=== PATIENT | female | born 1930 | race Caucasian/White ===

== ENCOUNTER 2017-07-30 13:06 | Emergency (ER) | payer MEDICARE ==
[~2017-07-30] VITALS: Ht 152.4 cm; Wt 63.6 kg
[~2017-07-30 13:06] MED LIST: ACET-812 PO; BISA5TAB10 PO; BISM-51 PO; CALC500T11 PO; CHOL10002 PO; DOCU-20 PO; FLUT16SP2 BOTHNARES; FURO-150 PO; GABA-532 PO; LEVO500T2 PO; MAG355OR18 PO; MAGN400O6 PO; POLY119P2 PO; POTA10TA15 PO; TRAM50TA2 PO
[2017-07-30 15:17] LABS: BASOPHILS % (AUTO) 0.3 % (0-1); EOSINOPHILS # (AUTO) 0.2 X10'3 (0-0.9); EOSINOPHILS % (AUTO) 1.9 % (0-6); HEMATOCRIT 31.1 % (35.0-45.0); HEMOGLOBIN 10.3 g/dl (12.0-16.0); LYMPHOCYTES # (AUTO) 1.5 X10'3 (1.1-4.8); LYMPHOCYTES % (AUTO) 18.1 % (21-51); MEAN CORPUSCULAR HGB CONC 33.2 % (33.0-36.5); MEAN CORPUSCULAR VOLUME 93.5 FL (78-98); MEAN PLATELET VOLUME 9.1 FL (7.4-10.4); MONOCYTES # (AUTO) 0.7 X10'3 (0-0.9); MONOCYTES % (AUTO) 8.2 % (2-12); NEUTROPHILS # (AUTO) 5.7 X10'3 (1.8-7.7); NEUTROPHILS % (AUTO) 71.5 % (42-75); PLATELET COUNT 390 X10'3 (140-440); RED BLOOD COUNT 3.33 X10'6 (4.20-5.60); RED CELL DISTRIBUTION WIDTH 14.9 % (11.5-14.5)
[2017-07-30 15:33] LABS: ALANINE AMINOTRANSFERASE 17 U/L (12-78); ALBUMIN 2.6 G/DL (3.4-5.0); ALBUMIN/GLOBULIN RATIO 0.5 (1.1-1.5); ALKALINE PHOSPHATASE 69 IU/L (46-116); ANION GAP 10 (8-16); ASPARTATE AMINO TRANSFERASE 39 U/L (10-37); BILIRUBIN,TOTAL 0.6 MG/DL (0.1-1.0); BLOOD UREA NITROGEN 35 MG/DL (7-18); BUN/CREATININE RATIO 26.1 (6.6-38.0); CALCIUM 8.5 MG/DL (8.5-10.1); CHLORIDE 106 MMOL/L (99-107); CREATININE 1.34 MG/DL (0.40-0.90); GLUCOSE 86 MG/DL (70-104); POTASSIUM 3.2 MMOL/L (3.5-5.1); SODIUM 147 MMOL/L (135-145); TOTAL PROTEIN 7.4 G/DL (6.4-8.2); eGFR 38 ML/MIN
[2017-07-30 15:33] LABS: CLARITY,URINE CLOUDY (Clear); COLOR,URINE YELLOW (Yellow); GLUCOSE, URINE NEGATIVE (Neg); KETONES,URINE NEGATIVE (Neg); LEUKOCYTE ESTERASE ,URINE LARGE (Neg); NITRITES, URINE NEGATIVE (Neg); OCCULT BLOOD,URINE SMALL (Neg); PROTEIN,URINE 30 mg/dl (Neg); UROBILINOGEN,URINE 0.2 E.U/dL (0.2-1.0)
[2017-07-30 15:41] LABS: UA COLLECTION TYPE STRAIGHT CATH
[2017-07-30 15:42] LABS: RBC,URINE 0-2 /HPF (0-2); WBC,URINE TNTC /HPF (0-4)
[2017-07-30 15:43] LABS: BACTERIA,URINE 2+ /HPF (Neg); MUCUS STRANDS NONE SEEN /LPF (Neg); SQUAMOUS EPITHELIAL CELL,UR FEW /LPF (FEW)
[2017-07-30] MEDS ORDERED: potassium Cl 20 mEq SR tablet PO STA (16:01)
[2017-07-30] MEDS ORDERED: CefTRIAXone 2gm/D5W 50ml ADVTG 50 ML IV ONE (16:05)
[2017-07-30] MEDS ORDERED: normal saline 1000ml 1,000 ML IV ONE (16:05)
[2017-07-30] MEDS ORDERED: NITR100C6 PO (16:16)
[2017-07-30 17:42] VITALS: BP 155/67
== END 2017-07-30 22:12 | disposition home or self-care (01) ==
LOC: ER 13:07
DX: E86.0 Dehydration (principal); E87.6 Hypokalemia; N39.0 Urinary tract infection, site not specified; G89.29 Other chronic pain; Z79.899 Other long term (current) drug therapy
CPT/HCPCS: 36415; 80053; 81001; 85025; 87077; 87088; 87186; 96365; 99285; J0696; J7030

== ENCOUNTER 2017-08-27 13:40 | Inpatient (IN) | payer MEDICARE ==
[~2017-08-27] VITALS: Ht 142.2 cm; Wt 40.9 kg
[~2017-08-27 13:40] MED LIST changes: -LEVO500T2 PO; +NITR100C6 PO
[2017-08-27 15:36] LABS: BASOPHILS % (AUTO) 0 % (0-1); EOSINOPHILS # (AUTO) 0.4 X10'3 (0-0.9); HEMATOCRIT 36.9 % (35.0-45.0); HEMOGLOBIN 12.3 g/dl (12.0-16.0); LYMPHOCYTES # (AUTO) 1.2 X10'3 (1.1-4.8); LYMPHOCYTES % (AUTO) 5.6 % (21-51); MEAN CORPUSCULAR HEMOGLOBIN 30.9 PG (27.0-31.0); MEAN CORPUSCULAR HGB CONC 33.3 % (33.0-36.5); MEAN CORPUSCULAR VOLUME 92.8 FL (78-98); MEAN PLATELET VOLUME 10.4 FL (7.4-10.4); MONOCYTES # (AUTO) 1.1 X10'3 (0-0.9); MONOCYTES % (AUTO) 5.2 % (2-12); NEUTROPHILS # (AUTO) 18.9 X10'3 (1.8-7.7); NEUTROPHILS % (AUTO) 87.2 % (42-75); PLATELET COUNT 320 X10'3 (140-440); RED BLOOD COUNT 3.97 X10'6 (4.20-5.60); RED CELL DISTRIBUTION WIDTH 16.4 % (11.5-14.5); WHITE BLOOD COUNT 21.6 X10'3 (4.5-11.0)
[2017-08-27 15:53] LABS: ALANINE AMINOTRANSFERASE 22 U/L (12-78); ALBUMIN/GLOBULIN RATIO 0.7 (1.1-1.5); ALKALINE PHOSPHATASE 117 IU/L (46-116); ANION GAP 16 (8-16); ASPARTATE AMINO TRANSFERASE 32 U/L (10-37); BILIRUBIN,TOTAL 0.8 MG/DL (0.1-1.0); BLOOD UREA NITROGEN 133 MG/DL (7-18); BUN/CREATININE RATIO 47.5 (6.6-38.0); CALCIUM 8.5 MG/DL (8.5-10.1); CHLORIDE 110 MMOL/L (99-107); GLUCOSE 95 MG/DL (70-104); LARGE PLATELETS FEW; PLATELET ESTIMATE NORMAL; POTASSIUM 4.1 MMOL/L (3.5-5.1); SODIUM 148 MMOL/L (135-145); TOTAL CARBON DIOXIDE 21.6 MMOL/L (24-32); TOTAL PROTEIN 7.2 G/DL (6.4-8.2); eGFR 16 ML/MIN
[2017-08-27 15:56] LABS: CLARITY,URINE SLIGHTLY CLOUDY (Clear); COLOR,URINE YELLOW (Yellow); GLUCOSE, URINE NEGATIVE (Neg); KETONES,URINE NEGATIVE (Neg); LEUKOCYTE ESTERASE ,URINE TRACE (Neg); NITRITES, URINE NEGATIVE (Neg); OCCULT BLOOD,URINE TRACE-LYSED (Neg); PROTEIN,URINE NEGATIVE (Neg); UROBILINOGEN,URINE 0.2 E.U/dL (0.2-1.0)
[2017-08-27 16:03] LABS: UA COLLECTION TYPE STRAIGHT CATH
[2017-08-27 16:04] LABS: AMORPHOUS URATES 1+; BACTERIA,URINE NONE SEEN /HPF (Neg); MUCUS STRANDS NONE SEEN /LPF (Neg); RBC,URINE 0-2 /HPF (0-2); SQUAMOUS EPITHELIAL CELL,UR MODERATE /LPF (FEW); WBC,URINE 0-4 /HPF (0-4)
[2017-08-27 16:05] LABS: YEAST FEW /HPF (NEGATIVE)
[2017-08-27] MEDS ORDERED: normal saline 1000ML IV soln IVB ONE (16:30)
[2017-08-27] MEDS ORDERED: magnesium 2GM in 50ml NS 50 ML IV PRN (19:15)
[2017-08-27] MEDS ORDERED: potassium Cl 40MEQ/NS 500ml 500 ML IV PRN (19:15)
[2017-08-27] MEDS ORDERED: acetaminophen 325mg tablet PO PRN ×2 (19:15→19:20)
[2017-08-27] MEDS ORDERED: ondansetron/PF 4mg/2ml inj IV PRN (19:15)
[2017-08-27] MEDS ORDERED: HYDROcodone/acetaminophen 5mg/325mg tablet PO PRN (19:15)
[2017-08-27] MEDS ORDERED: magnesium hydroxide 30ml (MOM) UD suspension PO PRN (19:15)
[2017-08-27] MEDS ORDERED: magnesium 4gm in 100ml NS 100 ML IV PRN (19:15)
[2017-08-27] MEDS ORDERED: potassium Cl 20 mEq SR tablet PO PRN ×2 (19:15)
[2017-08-27] MEDS ORDERED: magnesium Cl slow-release 64mg tablet PO PRN (19:15)
[2017-08-27] MEDS ORDERED: morphine 5 MG/ML injection IV PRN (19:15)
[2017-08-27] MEDS ORDERED: mag hydrox/Alum hydrox/simeth 30ml oral suspension PO PRN (19:15)
[2017-08-27] MEDS: normal saline 1000ml 1,000 ML IV SCH ×3 (19:59→22:40)
[2017-08-27] MEDS: traMADol 50MG tablet PO SCH (20:00)
[2017-08-27] MEDS: heparin, porcine 5000 units/ml vial SQ SCH (22:38)
[2017-08-27 23:00] VITALS: BP 139/62
[2017-08-28 06:15] LABS: BASOPHILS % (AUTO) 0.1 % (0-1); EOSINOPHILS # (AUTO) 0.2 X10'3 (0-0.9); EOSINOPHILS % (AUTO) 1.2 % (0-6); HEMATOCRIT 31.4 % (35.0-45.0); HEMOGLOBIN 10.4 g/dl (12.0-16.0); LYMPHOCYTES # (AUTO) 0.9 X10'3 (1.1-4.8); MEAN CORPUSCULAR HEMOGLOBIN 30.9 PG (27.0-31.0); MEAN CORPUSCULAR HGB CONC 33.2 % (33.0-36.5); MEAN CORPUSCULAR VOLUME 93.2 FL (78-98); MEAN PLATELET VOLUME 10.4 FL (7.4-10.4); MONOCYTES # (AUTO) 0.7 X10'3 (0-0.9); MONOCYTES % (AUTO) 5.1 % (2-12); NEUTROPHILS # (AUTO) 11.4 X10'3 (1.8-7.7); NEUTROPHILS % (AUTO) 86.6 % (42-75); PLATELET COUNT 233 X10'3 (140-440); RED BLOOD COUNT 3.37 X10'6 (4.20-5.60); RED CELL DISTRIBUTION WIDTH 16.6 % (11.5-14.5); WHITE BLOOD COUNT 13.1 X10'3 (4.5-11.0)
[2017-08-28 06:25] LABS: ALBUMIN 2.5 G/DL (3.4-5.0); ANION GAP 17 (8-16); BLOOD UREA NITROGEN 102 MG/DL (7-18); CALCIUM 8.1 MG/DL (8.5-10.1); CHLORIDE 117 MMOL/L (99-107); GLUCOSE 92 MG/DL (70-104); MAGNESIUM 2.1 MG/DL (1.5-2.4); SODIUM 153 MMOL/L (135-145); eGFR 24 ML/MIN
[2017-08-28 06:32] LABS: POTASSIUM 2.9 MMOL/L (3.5-5.1)
[2017-08-28 06:54] LABS: ANISOCYTOSIS 1+; BURR CELLS 1+; HYPOCHROMASIA 1+; LARGE PLATELETS FEW; PLATELET ESTIMATE NORMAL; POLYCHROMASIA FEW
[2017-08-28] MEDS: K and/or MAG REPLACEMENT MC SCH (07:03)
[2017-08-28 07:10] VITALS: BP 120/63
[2017-08-28] MEDS ORDERED: levoFLOXACIN-Levaquin 500mg/D5 100 ML IV SCH (08:00)
[2017-08-28] MEDS ORDERED: vitamin D (cholecalciferol) 1,000 unit tablet PO SCH (08:00)
[2017-08-28] MEDS ORDERED: gabapentin 300mg capsule PO SCH (08:00)
[2017-08-28] MEDS ORDERED: levoFLOXACIN-Levaquin 750MG/D5 150 ML IV ONE (08:00)
[2017-08-28] MEDS ORDERED: calcium carbonate 500mg chew tablet PO PRN (08:30)
[2017-08-28] MEDS: traMADol 50MG tablet PO SCH ×2 (08:33→19:31)
[2017-08-28] MEDS: heparin, porcine 5000 units/ml vial SQ SCH ×2 (08:34→19:28)
[2017-08-28] MEDS: potassium Cl 40MEQ/NS 500ml 500 ML IV PRN ×2 (09:41→17:19)
[2017-08-28 11:15] VITALS: BP 144/68
[2017-08-28] MEDS ORDERED: potassium cl 20mEq in 1/2 NS 1,000 ML IV SCH (16:20)
[2017-08-28] MEDS: lactobacillus rhamnosus 10,000 MMU CELLS/CAPSULE PO SCH (17:19)
[2017-08-28] MEDS: LACTOSE-FREE FOOD 237ML (BOOST) PO SCH (18:00)
[2017-08-28 20:00] VITALS: BP 127/66
[2017-08-28 23:00] VITALS: BP 120/86
[2017-08-29 06:24] LABS: BASOPHILS % (AUTO) 0.1 % (0-1); EOSINOPHILS # (AUTO) 0.2 X10'3 (0-0.9); EOSINOPHILS % (AUTO) 1.6 % (0-6); HEMOGLOBIN 9.6 g/dl (12.0-16.0); LYMPHOCYTES # (AUTO) 1.4 X10'3 (1.1-4.8); LYMPHOCYTES % (AUTO) 12.5 % (21-51); MEAN CORPUSCULAR HGB CONC 33.3 % (33.0-36.5); MEAN CORPUSCULAR VOLUME 93.1 FL (78-98); MEAN PLATELET VOLUME 10.6 FL (7.4-10.4); MONOCYTES # (AUTO) 0.8 X10'3 (0-0.9); MONOCYTES % (AUTO) 7.1 % (2-12); NEUTROPHILS # (AUTO) 8.5 X10'3 (1.8-7.7); NEUTROPHILS % (AUTO) 78.7 % (42-75); PLATELET COUNT 201 X10'3 (140-440); RED BLOOD COUNT 3.11 X10'6 (4.20-5.60); RED CELL DISTRIBUTION WIDTH 17.1 % (11.5-14.5); WHITE BLOOD COUNT 10.9 X10'3 (4.5-11.0)
[2017-08-29 07:15] VITALS: BP 144/66
[2017-08-29 07:25] LABS: ALBUMIN 2.1 G/DL (3.4-5.0); ANION GAP 10 (8-16); BLOOD UREA NITROGEN 66 MG/DL (7-18); BUN/CREATININE RATIO 47.1 (6.6-38.0); CHLORIDE 127 MMOL/L (99-107); GLUCOSE 86 MG/DL (70-104); MAGNESIUM 1.9 MG/DL (1.5-2.4); POTASSIUM 4.7 MMOL/L (3.5-5.1); TOTAL CARBON DIOXIDE 19.9 MMOL/L (24-32); eGFR 36 ML/MIN
[2017-08-29 07:28] LABS: SODIUM 157 MMOL/L (135-145)
[2017-08-29 07:55] LABS: LARGE PLATELETS FEW; PLATELET ESTIMATE NORMAL
[2017-08-29] MEDS: LACTOSE-FREE FOOD 237ML (BOOST) PO SCH ×3 (08:00→18:20)
[2017-08-29] MEDS: K and/or MAG REPLACEMENT MC SCH (08:00)
[2017-08-29] MEDS: normal saline 1000ml 1,000 ML IV SCH ×2 (09:14→17:30)
[2017-08-29] MEDS: cefTRIAXone 1g/NS 100ml IVPB 100 ML IV SCH (09:14)
[2017-08-29] MEDS: traMADol 50MG tablet PO SCH ×2 (09:15→20:20)
[2017-08-29] MEDS: lactobacillus rhamnosus 10,000 MMU CELLS/CAPSULE PO SCH ×2 (09:15→17:30)
[2017-08-29] MEDS: heparin, porcine 5000 units/ml vial SQ SCH ×2 (09:16→20:21)
[2017-08-29 11:00] VITALS: BP 129/55
[2017-08-29 15:30] LABS: ALANINE AMINOTRANSFERASE 18 U/L (12-78); ALBUMIN 2.2 G/DL (3.4-5.0); ALBUMIN/GLOBULIN RATIO 0.6 (1.1-1.5); ALKALINE PHOSPHATASE 117 IU/L (46-116); ANION GAP 8 (8-16); ASPARTATE AMINO TRANSFERASE 26 U/L (10-37); BILIRUBIN,TOTAL 0.5 MG/DL (0.1-1.0); BLOOD UREA NITROGEN 55 MG/DL (7-18); BUN/CREATININE RATIO 42.3 (6.6-38.0); CALCIUM 8.1 MG/DL (8.5-10.1); CHLORIDE 125 MMOL/L (99-107); GLUCOSE 122 MG/DL (70-104); SODIUM 154 MMOL/L (135-145); TOTAL CARBON DIOXIDE 20.9 MMOL/L (24-32); eGFR 39 ML/MIN
[2017-08-29 20:00] VITALS: BP 143/57
[2017-08-29] MEDS ORDERED: sodium chloride 0.45% 1,000 ML IV SCH (22:20)
[2017-08-29 23:00] VITALS: BP 117/60
[2017-08-30 06:48] LABS: BASOPHILS % (AUTO) 0.2 % (0-1); EOSINOPHILS # (AUTO) 0.3 X10'3 (0-0.9); EOSINOPHILS % (AUTO) 2.9 % (0-6); HEMATOCRIT 28.1 % (35.0-45.0); HEMOGLOBIN 9.1 g/dl (12.0-16.0); LYMPHOCYTES # (AUTO) 1.4 X10'3 (1.1-4.8); LYMPHOCYTES % (AUTO) 12.7 % (21-51); MEAN CORPUSCULAR HEMOGLOBIN 30.7 PG (27.0-31.0); MEAN CORPUSCULAR HGB CONC 32.5 % (33.0-36.5); MEAN CORPUSCULAR VOLUME 94.3 FL (78-98); MEAN PLATELET VOLUME 10.7 FL (7.4-10.4); MONOCYTES # (AUTO) 0.9 X10'3 (0-0.9); MONOCYTES % (AUTO) 8.1 % (2-12); NEUTROPHILS # (AUTO) 8.2 X10'3 (1.8-7.7); NEUTROPHILS % (AUTO) 76.1 % (42-75); PLATELET COUNT 180 X10'3 (140-440); RED BLOOD COUNT 2.98 X10'6 (4.20-5.60); RED CELL DISTRIBUTION WIDTH 17.5 % (11.5-14.5); WHITE BLOOD COUNT 10.7 X10'3 (4.5-11.0)
[2017-08-30 06:57] LABS: ALBUMIN 1.9 G/DL (3.4-5.0); ANION GAP 9 (8-16); BLOOD UREA NITROGEN 45 MG/DL (7-18); CHLORIDE 125 MMOL/L (99-107); GLUCOSE 94 MG/DL (70-104); MAGNESIUM 1.8 MG/DL (1.5-2.4); POTASSIUM 3.8 MMOL/L (3.5-5.1); TOTAL CARBON DIOXIDE 20.7 MMOL/L (24-32); eGFR 53 ML/MIN
[2017-08-30 07:00] VITALS: BP 133/63
[2017-08-30 07:00] LABS: SODIUM 155 MMOL/L (135-145)
[2017-08-30] MEDS: lactobacillus rhamnosus 10,000 MMU CELLS/CAPSULE PO SCH ×2 (07:30→16:48)
[2017-08-30] MEDS: K and/or MAG REPLACEMENT MC SCH (08:00)
[2017-08-30] MEDS: normal saline 1000ml 1,000 ML IV SCH ×2 (09:26→17:28)
[2017-08-30] MEDS: cefTRIAXone 1g/NS 100ml IVPB 100 ML IV SCH (09:27)
[2017-08-30] MEDS: LACTOSE-FREE FOOD 237ML (BOOST) PO SCH ×3 (09:29→18:32)
[2017-08-30] MEDS: traMADol 50MG tablet PO SCH ×2 (09:29→19:35)
[2017-08-30] MEDS: heparin, porcine 5000 units/ml vial SQ SCH ×2 (09:34→19:38)
[2017-08-30 11:38] VITALS: BP 128/63
[2017-08-30] MEDS ORDERED: polyvinyl alcohol ophthalmic drops 15ml bottle EACHEYE PRN (15:40)
[2017-08-30 17:42] LABS: ALANINE AMINOTRANSFERASE 13 U/L (12-78); ALBUMIN/GLOBULIN RATIO 0.5 (1.1-1.5); ALKALINE PHOSPHATASE 125 IU/L (46-116); ANION GAP 10 (8-16); ASPARTATE AMINO TRANSFERASE 21 U/L (10-37); BILIRUBIN,TOTAL 0.4 MG/DL (0.1-1.0); BLOOD UREA NITROGEN 41 MG/DL (7-18); CALCIUM 8.3 MG/DL (8.5-10.1); CHLORIDE 126 MMOL/L (99-107); GLUCOSE 106 MG/DL (70-104); POTASSIUM 3.9 MMOL/L (3.5-5.1); eGFR 53 ML/MIN
[2017-08-30 17:49] LABS: SODIUM 155 MMOL/L (135-145)
[2017-08-30 20:00] VITALS: BP 151/70
[2017-08-30 23:00] VITALS: BP 134/58
[2017-08-31] MEDS: normal saline 1000ml 1,000 ML IV SCH (03:45)
[2017-08-31 05:54] LABS: BASOPHILS % (AUTO) 0.2 % (0-1); EOSINOPHILS # (AUTO) 0.7 X10'3 (0-0.9); EOSINOPHILS % (AUTO) 6.8 % (0-6); HEMATOCRIT 27.1 % (35.0-45.0); LYMPHOCYTES # (AUTO) 1.1 X10'3 (1.1-4.8); MEAN CORPUSCULAR HEMOGLOBIN 31.1 PG (27.0-31.0); MEAN CORPUSCULAR HGB CONC 33.2 % (33.0-36.5); MEAN CORPUSCULAR VOLUME 93.8 FL (78-98); MEAN PLATELET VOLUME 10.8 FL (7.4-10.4); MONOCYTES # (AUTO) 0.8 X10'3 (0-0.9); MONOCYTES % (AUTO) 8.6 % (2-12); NEUTROPHILS # (AUTO) 7.1 X10'3 (1.8-7.7); NEUTROPHILS % (AUTO) 73.4 % (42-75); PLATELET COUNT 200 X10'3 (140-440); RED BLOOD COUNT 2.89 X10'6 (4.20-5.60); RED CELL DISTRIBUTION WIDTH 17.9 % (11.5-14.5); WHITE BLOOD COUNT 9.6 X10'3 (4.5-11.0)
[2017-08-31 06:42] LABS: ALBUMIN 1.8 G/DL (3.4-5.0); ANION GAP 9 (8-16); BLOOD UREA NITROGEN 33 MG/DL (7-18); BUN/CREATININE RATIO 27.5 (6.6-38.0); CALCIUM 7.9 MG/DL (8.5-10.1); CHLORIDE 128 MMOL/L (99-107); GLUCOSE 90 MG/DL (70-104); MAGNESIUM 1.8 MG/DL (1.5-2.4); POTASSIUM 3.7 MMOL/L (3.5-5.1); TOTAL CARBON DIOXIDE 21.2 MMOL/L (24-32); eGFR 43 ML/MIN
[2017-08-31 06:53] LABS: SODIUM 158 MMOL/L (135-145)
[2017-08-31 07:03] VITALS: BP 144/68
[2017-08-31] MEDS: sodium chloride 0.45% 1,000 ML IV SCH ×3 (07:41→23:20)
[2017-08-31] MEDS: K and/or MAG REPLACEMENT MC SCH (08:00)
[2017-08-31] MEDS: heparin, porcine 5000 units/ml vial SQ SCH ×2 (08:00→22:03)
[2017-08-31 08:38] LABS: OSMOLALITY 323 MOSM/K (280-300)
[2017-08-31] MEDS: lactobacillus rhamnosus 10,000 MMU CELLS/CAPSULE PO SCH ×2 (09:53→17:02)
[2017-08-31] MEDS: traMADol 50MG tablet PO SCH ×2 (09:54→20:00)
[2017-08-31] MEDS: LACTOSE-FREE FOOD 237ML (BOOST) PO SCH ×3 (09:55→18:03)
[2017-08-31] MEDS: cefTRIAXone 1g/NS 100ml IVPB 100 ML IV SCH (09:56)
[2017-08-31 11:00] VITALS: BP 147/81
[2017-08-31 15:15] LABS: ALANINE AMINOTRANSFERASE 10 U/L (12-78); ALBUMIN 1.9 G/DL (3.4-5.0); ALBUMIN/GLOBULIN RATIO 0.5 (1.1-1.5); ALKALINE PHOSPHATASE 116 IU/L (46-116); ANION GAP 11 (8-16); ASPARTATE AMINO TRANSFERASE 20 U/L (10-37); BILIRUBIN,TOTAL 0.3 MG/DL (0.1-1.0); BLOOD UREA NITROGEN 27 MG/DL (7-18); CHLORIDE 122 MMOL/L (99-107); GLUCOSE 101 MG/DL (70-104); POTASSIUM 3.3 MMOL/L (3.5-5.1); SODIUM 154 MMOL/L (135-145); TOTAL CARBON DIOXIDE 21.3 MMOL/L (24-32); TOTAL PROTEIN 5.7 G/DL (6.4-8.2); eGFR 59 ML/MIN
[2017-08-31] MEDS ORDERED: potassium Cl 40MEQ/NS 500ml 500 ML IV PRN ×2 (15:40)
[2017-08-31] MEDS ORDERED: magnesium Cl slow-release 64mg tablet PO PRN (15:40)
[2017-08-31] MEDS ORDERED: magnesium 2GM in 50ml NS 50 ML IV PRN (15:40)
[2017-08-31] MEDS ORDERED: magnesium 4gm in 100ml NS 100 ML IV PRN (15:40)
[2017-08-31] MEDS ORDERED: potassium Cl 20 mEq SR tablet PO PRN ×2 (15:40)
[2017-08-31 20:00] VITALS: BP 131/68
[2017-08-31 23:00] VITALS: BP 149/68
[2017-09-01 05:58] LABS: BASOPHILS % (AUTO) 0.1 % (0-1); EOSINOPHILS # (AUTO) 0.4 X10'3 (0-0.9); EOSINOPHILS % (AUTO) 4.1 % (0-6); HEMATOCRIT 23.2 % (35.0-45.0); HEMOGLOBIN 7.8 g/dl (12.0-16.0); LYMPHOCYTES # (AUTO) 1.4 X10'3 (1.1-4.8); LYMPHOCYTES % (AUTO) 15.2 % (21-51); MEAN CORPUSCULAR HEMOGLOBIN 30.8 PG (27.0-31.0); MEAN CORPUSCULAR HGB CONC 33.6 % (33.0-36.5); MEAN CORPUSCULAR VOLUME 91.7 FL (78-98); MEAN PLATELET VOLUME 10.7 FL (7.4-10.4); MONOCYTES # (AUTO) 0.8 X10'3 (0-0.9); MONOCYTES % (AUTO) 8.4 % (2-12); NEUTROPHILS # (AUTO) 6.8 X10'3 (1.8-7.7); NEUTROPHILS % (AUTO) 72.2 % (42-75); PLATELET COUNT 187 X10'3 (140-440); RED BLOOD COUNT 2.53 X10'6 (4.20-5.60); RED CELL DISTRIBUTION WIDTH 17.8 % (11.5-14.5); WHITE BLOOD COUNT 9.4 X10'3 (4.5-11.0)
[2017-09-01 06:17] LABS: ALBUMIN 1.5 G/DL (3.4-5.0); ANION GAP 10 (8-16); BLOOD UREA NITROGEN 19 MG/DL (7-18); BUN/CREATININE RATIO 23.8 (6.6-38.0); CALCIUM 7.6 MG/DL (8.5-10.1); CHLORIDE 122 MMOL/L (99-107); GLUCOSE 87 MG/DL (70-104); MAGNESIUM 1.5 MG/DL (1.5-2.4); POTASSIUM 3.5 MMOL/L (3.5-5.1); SODIUM 151 MMOL/L (135-145); TOTAL CARBON DIOXIDE 19.5 MMOL/L (24-32); eGFR 68 ML/MIN
[2017-09-01 06:52] LABS: LARGE PLATELETS FEW; PLATELET ESTIMATE NORMAL
[2017-09-01 07:00] VITALS: BP 144/67
[2017-09-01] MEDS: sodium chloride 0.45% 1,000 ML IV SCH ×2 (07:20→13:11)
[2017-09-01] MEDS: LACTOSE-FREE FOOD 237ML (BOOST) PO SCH ×2 (08:00→13:11)
[2017-09-01] MEDS: K and/or MAG REPLACEMENT MC SCH (08:00)
[2017-09-01] MEDS: lactobacillus rhamnosus 10,000 MMU CELLS/CAPSULE PO SCH ×2 (08:59→17:33)
[2017-09-01] MEDS: HYDROchlorothiazide 12.5mg capsule PO SCH (08:59)
[2017-09-01] MEDS: heparin, porcine 5000 units/ml vial SQ SCH ×2 (08:59→21:01)
[2017-09-01] MEDS: cefTRIAXone 1g/NS 100ml IVPB 100 ML IV SCH (08:59)
[2017-09-01] MEDS: traMADol 50MG tablet PO SCH ×2 (09:00→21:01)
[2017-09-01 11:53] VITALS: BP 145/72
[2017-09-01] MEDS ORDERED: CefTRIAXone 1 gm/50ml D5W ADV 50 ML IV SCH (12:23)
[2017-09-01 19:30] VITALS: BP 150/74
[2017-09-01 23:30] VITALS: BP 146/61
[2017-09-02] MEDS: sodium chloride 0.45% 1,000 ML IV SCH (01:39)
[2017-09-02 06:04] LABS: BASOPHILS # (AUTO) 0.1 X10'3 (0-0.2); BASOPHILS % (AUTO) 0.8 % (0-1); EOSINOPHILS # (AUTO) 0.3 X10'3 (0-0.9); EOSINOPHILS % (AUTO) 3.1 % (0-6); HEMOGLOBIN 9.1 g/dl (12.0-16.0); LYMPHOCYTES # (AUTO) 1.8 X10'3 (1.1-4.8); LYMPHOCYTES % (AUTO) 17.7 % (21-51); MEAN CORPUSCULAR HEMOGLOBIN 30.9 PG (27.0-31.0); MEAN CORPUSCULAR HGB CONC 33.7 % (33.0-36.5); MEAN CORPUSCULAR VOLUME 91.7 FL (78-98); MEAN PLATELET VOLUME 10.8 FL (7.4-10.4); MONOCYTES # (AUTO) 0.9 X10'3 (0-0.9); MONOCYTES % (AUTO) 8.5 % (2-12); NEUTROPHILS % (AUTO) 69.9 % (42-75); PLATELET COUNT 210 X10'3 (140-440); RED BLOOD COUNT 2.94 X10'6 (4.20-5.60); RED CELL DISTRIBUTION WIDTH 17.5 % (11.5-14.5); WHITE BLOOD COUNT 10.1 X10'3 (4.5-11.0)
[2017-09-02 06:34] LABS: ALANINE AMINOTRANSFERASE 15 U/L (12-78); ALBUMIN 1.8 G/DL (3.4-5.0); ALBUMIN/GLOBULIN RATIO 0.5 (1.1-1.5); ALKALINE PHOSPHATASE 115 IU/L (46-116); ANION GAP 12 (8-16); ASPARTATE AMINO TRANSFERASE 21 U/L (10-37); BILIRUBIN,TOTAL 0.4 MG/DL (0.1-1.0); BLOOD UREA NITROGEN 14 MG/DL (7-18); BUN/CREATININE RATIO 17.3 (6.6-38.0); CALCIUM 7.7 MG/DL (8.5-10.1); CHLORIDE 111 MMOL/L (99-107); CREATININE 0.81 MG/DL (0.40-0.90); GLUCOSE 77 MG/DL (70-104); MAGNESIUM 1.4 MG/DL (1.5-2.4); POTASSIUM 3.5 MMOL/L (3.5-5.1); SODIUM 144 MMOL/L (135-145); TOTAL CARBON DIOXIDE 21.2 MMOL/L (24-32); TOTAL PROTEIN 5.6 G/DL (6.4-8.2); eGFR 67 ML/MIN
[2017-09-02 07:00] VITALS: BP 126/61
[2017-09-02] MEDS: K and/or MAG REPLACEMENT MC SCH (08:00)
[2017-09-02] MEDS: lactobacillus rhamnosus 10,000 MMU CELLS/CAPSULE PO SCH (08:07)
[2017-09-02] MEDS: HYDROchlorothiazide 12.5mg capsule PO SCH (08:07)
[2017-09-02] MEDS: traMADol 50MG tablet PO SCH (08:08)
[2017-09-02] MEDS: heparin, porcine 5000 units/ml vial SQ SCH (08:08)
[2017-09-02] MEDS ORDERED: HYDR12.5 PO (08:58)
[2017-09-02 12:00] VITALS: BP 124/68
== END 2017-09-02 18:30 | disposition home health service (06) | DRG 682 ==
LOC: ER 13:41 → ED HOLD 19:11 → EDBEDREQ 19:45 → EDBEDREQTM 20:44 → EDBEDREQSVC 20:44 → MED 3N 22:16
PROVIDERS: ADMIT Internal Medicine; ATTEND Family Medicine
DX: N17.0 Acute kidney failure with tubular necrosis (principal); E43 Unspecified severe protein-calorie malnutrition; E86.0 Dehydration; E87.0 Hyperosmolality and hypernatremia; G93.40 Encephalopathy, unspecified; E86.1 Hypovolemia; D64.9 Anemia, unspecified; F03.90 Unspecified dementia, unspecified severity, without behavioral disturbance, psychotic disturbance, mood disturbance, and anxiety; N18.4 Chronic kidney disease, stage 4 (severe); G89.29 Other chronic pain; M54.9 Dorsalgia, unspecified; K30 Functional dyspepsia; E87.6 Hypokalemia; I12.9 Hypertensive chronic kidney disease with stage 1 through stage 4 chronic kidney disease, or unspecified chronic kidney disease; Z68.20 Body mass index [BMI] 20.0-20.9, adult; Z79.899 Other long term (current) drug therapy
CPT/HCPCS: 36415; 71045; 80048; 80053; 81001; 83605; 83735; 83930; 83935; 84145; 85025; 87040; 87070; 87088; 87502; 87503; 92616; 93005; 96361; 96365; 99285; A4315; A6212; A6213; A6258; J0696; J1644; J1956; J2405; J3480; J7030

== ENCOUNTER 2017-09-22 18:02 | Emergency (ER) | payer MEDICARE ==
[~2017-09-22] VITALS: Ht 152.4 cm; Wt 38.6 kg
[~2017-09-22 18:02] MED LIST changes: -FURO-150 PO; +HYDR12.5 PO; -MAGN400O6 PO; -NITR100C6 PO
[2017-09-22] MEDS ORDERED: normal saline 1000ML IV soln IVB ONE (18:10)
[2017-09-22] MEDS ORDERED: cefTRIAXone 1g/NS 100ml IVPB 100 ML IV ONE (18:10)
[2017-09-22 18:51] LABS: BASOPHILS % (AUTO) 0.3 % (0-1); EOSINOPHILS # (AUTO) 0.3 X10'3 (0-0.9); EOSINOPHILS % (AUTO) 4.4 % (0-6); HEMATOCRIT 33.1 % (35.0-45.0); HEMOGLOBIN 10.9 g/dl (12.0-16.0); LYMPHOCYTES # (AUTO) 1.1 X10'3 (1.1-4.8); LYMPHOCYTES % (AUTO) 15.3 % (21-51); MEAN CORPUSCULAR HEMOGLOBIN 30.6 PG (27.0-31.0); MEAN CORPUSCULAR HGB CONC 32.9 % (33.0-36.5); MEAN CORPUSCULAR VOLUME 93.1 FL (78-98); MONOCYTES # (AUTO) 0.5 X10'3 (0-0.9); MONOCYTES % (AUTO) 6.6 % (2-12); NEUTROPHILS # (AUTO) 5.1 X10'3 (1.8-7.7); NEUTROPHILS % (AUTO) 73.4 % (42-75); PLATELET COUNT 450 X10'3 (140-440); RED BLOOD COUNT 3.55 X10'6 (4.20-5.60); RED CELL DISTRIBUTION WIDTH 18.1 % (11.5-14.5); WHITE BLOOD COUNT 6.9 X10'3 (4.5-11.0)
[2017-09-22 19:01] LABS: INR 1.1 INR; PARTIAL THROMBOPLASTIN TIME 26 SECONDS (22-32); PROTHROMBIN TIME 11.4 SECONDS (9.0-12.0)
[2017-09-22 19:07] LABS: ALANINE AMINOTRANSFERASE 12 U/L (12-78); ALBUMIN 2.1 G/DL (3.4-5.0); ALBUMIN/GLOBULIN RATIO 0.5 (1.1-1.5); ALKALINE PHOSPHATASE 81 IU/L (46-116); ANION GAP 8 (8-16); ASPARTATE AMINO TRANSFERASE 20 U/L (10-37); BILIRUBIN,TOTAL 0.4 MG/DL (0.1-1.0); BLOOD UREA NITROGEN 24 MG/DL (7-18); BUN/CREATININE RATIO 21.8 (6.6-38.0); CALCIUM 8.4 MG/DL (8.5-10.1); CHLORIDE 109 MMOL/L (99-107); GLUCOSE 160 MG/DL (70-104); MAGNESIUM 1.9 MG/DL (1.5-2.4); POTASSIUM 3.1 MMOL/L (3.5-5.1); SODIUM 151 MMOL/L (135-145); TOTAL CARBON DIOXIDE 34.5 MMOL/L (24-32); TOTAL PROTEIN 6.6 G/DL (6.4-8.2); eGFR 47 ML/MIN
[2017-09-22 19:12] LABS: CLARITY,URINE TURBID (Clear); COLOR,URINE YELLOW (Yellow); GLUCOSE, URINE NEGATIVE (Neg); KETONES,URINE NEGATIVE (Neg); LEUKOCYTE ESTERASE ,URINE LARGE (Neg); NITRITES, URINE POSITIVE (Neg); OCCULT BLOOD,URINE MODERATE (Neg); PH,URINE 6.5 (4.8-8.0); PROTEIN,URINE 100 mg/dl (Neg); UROBILINOGEN,URINE 0.2 E.U/dL (0.2-1.0)
[2017-09-22 19:14] LABS: UA COLLECTION TYPE FOLEY CATH
[2017-09-22 19:22] LABS: WBC,URINE TNTC /HPF (0-4)
[2017-09-22 19:23] LABS: BACTERIA,URINE 3+ /HPF (Neg); MUCUS STRANDS MANY /LPF (Neg); SQUAMOUS EPITHELIAL CELL,UR MODERATE /LPF (FEW); TRANSITIONAL EPI CELLS,URINE FEW /HPF
[2017-09-22] MEDS ORDERED: sodium chloride 0.45% 1,000 ML IV ONE (19:40)
[2017-09-22] MEDS ORDERED: CEPH500C5 PO (21:01)
[2017-09-22 21:52] VITALS: BP 152/75
== END 2017-09-22 21:54 | disposition home or self-care (01) ==
LOC: ER 18:02
DX: N39.0 Urinary tract infection, site not specified (principal); G89.29 Other chronic pain; F03.90 Unspecified dementia, unspecified severity, without behavioral disturbance, psychotic disturbance, mood disturbance, and anxiety
CPT/HCPCS: 36415; 71045; 80053; 81001; 83605; 83735; 84145; 85025; 85610; 85730; 87040; 87077; 87088; 87186; 96361; 96365; 99285; J0696; J7030; 93005

== ENCOUNTER 2018-02-28 16:55 | Emergency (ER) | payer MEDICARE ==
[~2018-02-28] VITALS: Ht 157.5 cm; Wt 40.0 kg
[~2018-02-28 16:55] MED LIST changes: +CEPH500C5 PO
[2018-02-28] MEDS ORDERED: normal saline 1000ML IV soln IV ONE (17:00)
[2018-02-28 17:01] VITALS: BP 154/72
[2018-02-28 17:23] LABS: COLOR,URINE YELLOW (Yellow); GLUCOSE, URINE NEGATIVE (Neg); KETONES,URINE NEGATIVE (Neg); LEUKOCYTE ESTERASE ,URINE LARGE (Neg); NITRITES, URINE NEGATIVE (Neg); OCCULT BLOOD,URINE MODERATE (Neg); PH,URINE 5.5 (4.8-8.0); PROTEIN,URINE 30 mg/dl (Neg); UROBILINOGEN,URINE 0.2 E.U/dL (0.2-1.0)
[2018-02-28 17:30] LABS: CLARITY,URINE CLOUDY (Clear); UA COLLECTION TYPE FOLEY CATH
[2018-02-28 17:31] LABS: WBC,URINE TNTC /HPF (0-4)
[2018-02-28 17:32] LABS: BACTERIA,URINE FEW /HPF (Neg); MUCUS STRANDS NONE SEEN /LPF (Neg); SQUAMOUS EPITHELIAL CELL,UR NONE SEEN /LPF (FEW); YEAST MANY /HPF (NEGATIVE)
[2018-02-28 18:27] LABS: BASOPHILS % (AUTO) 0.2 % (0-1); EOSINOPHILS # (AUTO) 0.2 X10'3 (0-0.9); EOSINOPHILS % (AUTO) 2.1 % (0-6); HEMATOCRIT 33.2 % (35.0-45.0); LYMPHOCYTES # (AUTO) 2.6 X10'3 (1.1-4.8); LYMPHOCYTES % (AUTO) 26.4 % (21-51); MEAN CORPUSCULAR HEMOGLOBIN 30.9 PG (27.0-31.0); MEAN CORPUSCULAR VOLUME 93.5 FL (78-98); MEAN PLATELET VOLUME 9.8 FL (7.4-10.4); MONOCYTES # (AUTO) 0.8 X10'3 (0-0.9); MONOCYTES % (AUTO) 7.9 % (2-12); NEUTROPHILS # (AUTO) 6.2 X10'3 (1.8-7.7); NEUTROPHILS % (AUTO) 63.4 % (42-75); PLATELET COUNT 264 X10'3 (140-440); RED BLOOD COUNT 3.55 X10'6 (4.20-5.60); RED CELL DISTRIBUTION WIDTH 15.5 % (11.5-14.5); WHITE BLOOD COUNT 9.8 X10'3 (4.5-11.0)
[2018-02-28] MEDS ORDERED: levoFLOXACIN-Levaquin 500mg/D5 100 ML IV ONE (18:35)
[2018-02-28 18:42] LABS: ALANINE AMINOTRANSFERASE 14 U/L (12-78); ALBUMIN 2.5 G/DL (3.4-5.0); ALBUMIN/GLOBULIN RATIO 0.7 (1.1-1.5); ALKALINE PHOSPHATASE 79 IU/L (46-116); ANION GAP 6 (8-16); ASPARTATE AMINO TRANSFERASE 20 U/L (10-37); BILIRUBIN,TOTAL 0.4 MG/DL (0.1-1.0); BLOOD UREA NITROGEN 38 MG/DL (7-18); BUN/CREATININE RATIO 35.5 (6.6-38.0); CALCIUM 8.4 MG/DL (8.5-10.1); CHLORIDE 110 MMOL/L (99-107); CREATININE 1.07 MG/DL (0.40-0.90); GLUCOSE 113 MG/DL (70-104); POTASSIUM 3.9 MMOL/L (3.5-5.1); SODIUM 146 MMOL/L (135-145); TOTAL CARBON DIOXIDE 29.8 MMOL/L (24-32); TOTAL PROTEIN 6.2 G/DL (6.4-8.2); eGFR 49 ML/MIN
[2018-02-28] MEDS ORDERED: FLUT16SP2 BOTHNARES (18:44)
[2018-02-28] MEDS ORDERED: FURO20TA4 PO (18:44)
[2018-02-28] MEDS ORDERED: HALO2TAB PO (18:45)
[2018-02-28] MEDS ORDERED: LEVO500T2 PO (18:47)
[2018-02-28] MEDS ORDERED: DOXY100C43 PO (18:47)
[2018-02-28] MEDS ORDERED: LEVO500T89 PO (18:54)
== END 2018-02-28 20:17 | disposition home or self-care (01) ==
LOC: ER 16:55
DX: R41.82 Altered mental status, unspecified (principal); N39.0 Urinary tract infection, site not specified; G89.29 Other chronic pain; F03.90 Unspecified dementia, unspecified severity, without behavioral disturbance, psychotic disturbance, mood disturbance, and anxiety; Z79.2 Long term (current) use of antibiotics; Z79.899 Other long term (current) drug therapy
CPT/HCPCS: 36415; 51702; 70450; 71045; 80053; 81001; 83605; 84145; 85025; 87040; 87077; 87088; 93005; 96361; 96374; 99285; A4315; J1956; J7030

== ENCOUNTER 2018-04-18 12:52 | Emergency (ER) | payer MEDICARE ==
[~2018-04-18] VITALS: Ht 157.5 cm; Wt 44.0 kg
[~2018-04-18 12:52] MED LIST changes: +DOXY100C43 PO; +FURO20TA4 PO; +HALO2TAB PO; +LEVO500T2 PO
[2018-04-18 15:31] LABS: BASOPHILS % (AUTO) 0.4 % (0-1); EOSINOPHILS # (AUTO) 0.3 X10'3 (0-0.9); EOSINOPHILS % (AUTO) 3.8 % (0-6); HEMATOCRIT 32.2 % (35.0-45.0); LYMPHOCYTES # (AUTO) 1.9 X10'3 (1.1-4.8); LYMPHOCYTES % (AUTO) 22.7 % (21-51); MEAN CORPUSCULAR HEMOGLOBIN 31.1 PG (27.0-31.0); MEAN CORPUSCULAR HGB CONC 34.3 % (33.0-36.5); MEAN CORPUSCULAR VOLUME 90.9 FL (78-98); MEAN PLATELET VOLUME 8.8 FL (7.4-10.4); MONOCYTES # (AUTO) 0.7 X10'3 (0-0.9); MONOCYTES % (AUTO) 7.7 % (2-12); NEUTROPHILS # (AUTO) 5.5 X10'3 (1.8-7.7); NEUTROPHILS % (AUTO) 65.4 % (42-75); PLATELET COUNT 391 X10'3 (140-440); RED BLOOD COUNT 3.54 X10'6 (4.20-5.60); RED CELL DISTRIBUTION WIDTH 15.8 % (11.5-14.5); WHITE BLOOD COUNT 8.4 X10'3 (4.5-11.0)
[2018-04-18 15:41] LABS: C DIFF ANTIGEN NEGATIVE (NEGATIVE); C DIFF SPECIMEN=DIARRHEA? ACCEPTABLE; C DIFFICILE TOXINS A&B NEGATIVE (Neg)
[2018-04-18 15:44] LABS: ALANINE AMINOTRANSFERASE 7 U/L (12-78); ALBUMIN/GLOBULIN RATIO 0.7 (1.1-1.5); ALKALINE PHOSPHATASE 70 IU/L (46-116); ANION GAP 9 (8-16); ASPARTATE AMINO TRANSFERASE 12 U/L (10-37); BILIRUBIN,TOTAL 0.3 MG/DL (0.1-1.0); BLOOD UREA NITROGEN 31 MG/DL (7-18); BUN/CREATININE RATIO 34.1 (6.6-38.0); CALCIUM 8.9 MG/DL (8.5-10.1); CHLORIDE 107 MMOL/L (99-107); CREATININE 0.91 MG/DL (0.40-0.90); GLUCOSE 102 MG/DL (70-104); POTASSIUM 3.5 MMOL/L (3.5-5.1); SODIUM 145 MMOL/L (135-145); TOTAL CARBON DIOXIDE 29.4 MMOL/L (24-32); TOTAL PROTEIN 7.1 G/DL (6.4-8.2); eGFR 58 ML/MIN
[2018-04-18 16:31] VITALS: BP 125/78
== END 2018-04-18 17:16 | disposition home or self-care (01) ==
LOC: ER 12:53
DX: R19.7 Diarrhea, unspecified (principal); F03.90 Unspecified dementia, unspecified severity, without behavioral disturbance, psychotic disturbance, mood disturbance, and anxiety; G89.29 Other chronic pain; Z79.2 Long term (current) use of antibiotics; Z79.899 Other long term (current) drug therapy
CPT/HCPCS: 36415; 80053; 85025; 87324; 87449; 99284

== ENCOUNTER 2018-06-20 17:18 | Emergency (ER) | payer MEDICARE ==
[~2018-06-20] VITALS: Ht 149.9 cm; Wt 45.5 kg
[2018-06-20] MEDS ORDERED: normal saline 1000ML IV soln IVB ONE (17:30)
[2018-06-20 18:21] LABS: BASOPHILS # (AUTO) 0.1 X10'3 (0-0.2); BASOPHILS % (AUTO) 0.8 % (0-1); EOSINOPHILS # (AUTO) 0.3 X10'3 (0-0.9); EOSINOPHILS % (AUTO) 2.5 % (0-6); HEMATOCRIT 38.7 % (35.0-45.0); HEMOGLOBIN 12.6 g/dl (12.0-16.0); LYMPHOCYTES # (AUTO) 2.1 X10'3 (1.1-4.8); LYMPHOCYTES % (AUTO) 15.4 % (21-51); MEAN CORPUSCULAR HEMOGLOBIN 30.4 PG (27.0-31.0); MEAN CORPUSCULAR HGB CONC 32.5 % (33.0-36.5); MEAN CORPUSCULAR VOLUME 93.4 FL (78-98); MEAN PLATELET VOLUME 10.8 FL (7.4-10.4); MONOCYTES # (AUTO) 0.8 X10'3 (0-0.9); MONOCYTES % (AUTO) 5.7 % (2-12); NEUTROPHILS # (AUTO) 10.1 X10'3 (1.8-7.7); NEUTROPHILS % (AUTO) 75.6 % (42-75); PLATELET COUNT 262 X10'3 (140-440); RED BLOOD COUNT 4.14 X10'6 (4.20-5.60); RED CELL DISTRIBUTION WIDTH 14.9 % (11.5-14.5); WHITE BLOOD COUNT 13.4 X10'3 (4.5-11.0)
[2018-06-20 18:36] LABS: ALANINE AMINOTRANSFERASE 15 U/L (12-78); ALBUMIN 3.1 G/DL (3.4-5.0); ALBUMIN/GLOBULIN RATIO 0.7 (1.1-1.5); ALKALINE PHOSPHATASE 124 IU/L (46-116); ANION GAP 7 (8-16); ASPARTATE AMINO TRANSFERASE 21 U/L (10-37); BILIRUBIN,TOTAL 0.7 MG/DL (0.1-1.0); BLOOD UREA NITROGEN 75 MG/DL (7-18); BUN/CREATININE RATIO 56.8 (6.6-38.0); CALCIUM 9.9 MG/DL (8.5-10.1); CHLORIDE 108 MMOL/L (99-107); CREATININE 1.32 MG/DL (0.40-0.90); GLUCOSE 115 MG/DL (70-104); POTASSIUM 4.2 MMOL/L (3.5-5.1); SODIUM 145 MMOL/L (135-145); TOTAL CARBON DIOXIDE 30.2 MMOL/L (24-32); TOTAL PROTEIN 7.4 G/DL (6.4-8.2); eGFR 38 ML/MIN
[2018-06-20 18:39] LABS: ETHANOL < 0.010 GM/DL (0.0-0.010); TROPONIN I 0.04 NG/ML (0.0-0.05)
[2018-06-20 18:54] LABS: INR 1.1 INR; PROTHROMBIN TIME 11.2 SECONDS (9.0-12.0)
[2018-06-20 19:06] LABS: CLARITY,URINE TURBID (Clear); COLOR,URINE YELLOW (Yellow); GLUCOSE, URINE NEGATIVE (Neg); KETONES,URINE NEGATIVE (Neg); LEUKOCYTE ESTERASE ,URINE MODERATE (Neg); NITRITES, URINE POSITIVE (Neg); OCCULT BLOOD,URINE MODERATE (Neg); PROTEIN,URINE 100 mg/dl (Neg); UROBILINOGEN,URINE 0.2 E.U/dL (0.2-1.0)
[2018-06-20 19:15] LABS: UA COLLECTION TYPE NON-SPECIFIED
[2018-06-20 19:30] LABS: BACTERIA,URINE 1+ /HPF (Neg); RBC,URINE NONE SEEN /HPF (0-2); SQUAMOUS EPITHELIAL CELL,UR MODERATE /LPF (FEW); WBC,URINE TNTC /HPF (0-4); YEAST MANY /HPF (NEGATIVE)
[2018-06-20] MEDS ORDERED: CefTRIAXone 2gm/D5W 50ml 50 ML IV ONE (19:30)
[2018-06-20] MEDS ORDERED: CEPH500C5 PO (20:43)
[2018-06-20 21:07] VITALS: BP 148/50
== END 2018-06-20 21:32 | disposition home or self-care (01) ==
LOC: ER 17:18
DX: N39.0 Urinary tract infection, site not specified (principal); E86.0 Dehydration; F03.90 Unspecified dementia, unspecified severity, without behavioral disturbance, psychotic disturbance, mood disturbance, and anxiety; Z88.1 Allergy status to other antibiotic agents; Z88.6 Allergy status to analgesic agent; Z88.8 Allergy status to other drugs, medicaments and biological substances
CPT/HCPCS: 36415; 70450; 71045; 80053; 80320; 81001; 84484; 85025; 85610; 87077; 87088; 87186; 93005; 96365; 99284; J0696; 96361